=== PATIENT | female | born 1955 | race Caucasian/White ===

== ENCOUNTER → 2021-10-14 | Outpatient (CLI) | payer OTHER ==
[~2021-10-14] MED LIST: ALLERGY10 M1 PO; ASPIRIN81 MG PO; BUPROPION HCL150 M1 PO; FLUOXETINE HCL10 M1 PO; HYDRALAZINE HCL10 MG PO; HYDROCHLOROTHIA25 MG PO; LEVOTHYROXINE112 MCG PO; LORTAB 5-325 M1 EACH PO; LOSARTAN POTAS100 MG PO; LOVAZA1 GM PO; MONTELUKAST SOD10 MG PO; NEURONTIN 400400 MG PO; NEXIUM 24HR22.3 MG PO; NORVASC 5 MG TAB5 MG PO; PRAVASTATIN SOD40 MG PO; PROPRANOLOL HCL10 MG PO
== END ==
LOC: CT 10-07 14:00
DX: R10.30 Lower abdominal pain, unspecified (principal)
CPT/HCPCS: Q9967

== ENCOUNTER → 2021-11-14 | Outpatient (CLI) | payer OTHER | LOC: EXRD 13:30 | DX: R55 Syncope and collapse (principal) | CPT/HCPCS: 93880 ==

== ENCOUNTER → 2022-01-17 | Outpatient (CLI) | payer OTHER | LOC: MAMO 08-10 09:00 → CT 08-22 10:00 → MAMO 08-22 10:30 → CT 08-22 10:30 | DX: Z12.31 Encounter for screening mammogram for malignant neoplasm of breast (principal); Z87.891 Personal history of nicotine dependence | CPT/HCPCS: 71271; 77063; 77067 ==